=== PATIENT | female | born 1945 | race Caucasian/White ===

== ENCOUNTER 2019-09-24 17:41 | Emergency (ER) | payer MEDICARE ==
[2019-09-24] MEDS ORDERED: LIDOCAINE/PRILOCAINE 2.5% CREAM 5 GM TUBE TOP STA (18:40)
[2019-09-24] MEDS ORDERED: oxyCODONE 5 MG TABLET PO STA ×2 (18:41→19:49)
[2019-09-24] MEDS ORDERED: SULFAMETH/TRIMETH DS 800/160 MG TABLET PO STA (18:41)
[2019-09-24] MEDS ORDERED: AMOX/CLAV 875 MG/125 MG TABLET PO STA (18:41)
--- NOTE | 2019-09-24 18:43 | ED Physician Documentation ---
History of Present Illness - Stated complaint Stated Complaint: R HAND SWELLING - Chief complaint Chief Complaint: Wound - History obtained from History obtained from: Patient - History of Present Illness Timing: Today Pain level max: 0 Pain level now: 0 - Additonal information Additional information: 73-year-old female presents to the emergency department with right hand redness and swelling. She noticed this a few days ago, it has progressively gotten worse. Does not recall any injury. Tetanus is up-to-date. She is right- handed. Saw her doctor today who has referred her here for treatment. Worse with movement and better with rest. No fevers Review of Systems Constitutional: denies: Fever GI: denies: Vomiting, Diarrhea Skin: denies: Rash Musculoskeletal: denies: Neck pain, Back pain Neurologic: denies: Headache PD PAST MEDICAL HISTORY - Past Medical History Past Medical History: No - Present Medications Home Medications: Ambulatory Orders Medication Instructions Recorded Confirmed Amox/Clav 875/125 [Augmentin] 1 each PO Q12H #20 tablet 09/24/19 Sulfamethox/Trimeth 800/160 1 each PO BID #20 tablet 09/24/19 [Bactrim Ds 800/160] - Allergies Allergies/Adverse Reactions: Allergies Allergy/AdvReac Type Severity Reaction Status Date / Time No Known Drug Allergies Allergy Verified 09/24/19 17:49 - Living Situation Living Situation: reports: With family Living Arrangement: reports: At home - Social History Does the pt have substance abuse?: No - Family History Family history: reports: Non contributory PD ED PE NORMAL - Vitals Vital signs reviewed: Yes - General General: Alert and oriented X 3, No acute distress - HEENT HEENT: Moist mucous membranes - Neck Neck: Supple, no meningeal sign - Cardiac Cardiac: RRR - Respiratory Respiratory: No respiratory distress, Clear bilaterally - Derm Derm: Warm and dry - Extremities Extremities: Other (R hand - Erythema and swelling to the dorsum of the hand as well as to the thenar eminence. There is a small pustule visible. Full range of motion. No evidence of deep space infection in the hand. No lymphangitic spread. NVI) - Neuro Neuro: Alert and oriented X 3 - Psych Psych: Normal mood, Normal affect Results - Vitals Vitals: Vital Signs - 24 hr 09/24/19 20:29 Temperature 36.7 C Heart Rate 69 Respiratory 16 Rate Blood Pressure 135/92 H O2 Saturation 97 Oxygen O2 Source Room air - Labs Labs: Microbiology 09/24/19 20:50 Wound Culture - Preliminary Hand - Right Staphylococcus Aureus Procedures - Abscess I&D (location) Right hand Preparation: Topical spray, LET Incision: Incised with scalpel, Purulent drainage, Culture obtained Other: Pt tolerated well, Dressing applied, Antibiotic prescribed PD MEDICAL DECISION MAKING - ED course Complexity details: considered differential, d/w patient, d/w family ED course: 73-year-old female with an abscess and cellulitis to the right hand. This was incised and drained. Started on antibiotics. We will follow-up closely with her doctor and or here. Patient given strict return precautions. No evidence of deep space infection at this time. Patient counseled regarding signs and symptoms for which I believe and urgent re-evaluation would be necessary. Patient with good understanding of and agreement to plan and is comfortable going home at this time This document was made in part using voice recognition software. While efforts are made to proofread this document, sound alike and grammatical errors may occur. Departure - Departure Disposition: 01 Home, Self Care Clinical Impression: Abscess Cellulitis Qualifiers: Site of cellulitis: extremity Site of cellulitis of extremity: upper extremity Laterality: right Qualified Code(s): L03.113 - Cellulitis of right upper limb Condition: Good Instructions: ED Abscess IandD, ED Infec Skin Cellulitis Follow-Up: Beni Carter MD [Primary Care Provider] - Within 3 Days Prescriptions: Amox/Clav 875/125 [Augmentin] 1 each PO Q12H #20 tablet Sulfamethox/Trimeth 800/160 [Bactrim Ds 800/160] 1 each PO BID #20 tablet Comments: Take all antibiotics until gone. This should be improving by tomorrow. Return if you notice redness extending up the hand or the forearm. Return for fevers. Otherwise this needs to be rechecked in 2 to 3 days either here or with your doctor. Discharge Date/Time: 09/24/19 20:42
[2019-09-24 20:30] VITALS: BP 135/92
== END 2019-09-24 20:42 | disposition home or self-care (01) ==
LOC: ED 17:41
DX: L02.511 Cutaneous abscess of right hand (principal); L03.113 Cellulitis of right upper limb
CPT/HCPCS: 10060; 87070; 87181; 87205; 99283; 99284; A9270; J3490

== ENCOUNTER 2023-02-28 13:47 | Emergency (ER) | payer MEDICARE ==
[2023-02-28 13:58] VITALS: BP 147/86
--- NOTE | 2023-02-28 13:59 | ED Physician Documentation ---
PD HPI SKIN - Stated complaint Stated Complaint: RT BACK ABSESS - Chief complaint Chief Complaint: Wound - History obtained from History obtained from: Patient - History of Present Illness Timing - onset: How many days ago (several days of steadily increasing redness, swelling and painful/tender right suprascapular area. Has had some lump under skin for a year. Has not been tender nor red prior.) Timing - duration: Days Timing - details: Abrupt onset, Still present Location: Other (right suprascapular area.) Quality / character: Painful, Discolored, Swelling. No: Draining Associated symptoms: No: Fever, Myalgias, N/V/D Contributing factors: Other (has had subcut lump there for a year, nontender but "in the way" for bra-strap. Had been to PMD and was told to leave it unless bothers her.) Similar symptoms before: Has not had sx before Review of Systems Constitutional: denies: Fever, Chills Skin: reports: Lesions Neurologic: denies: Focal weakness, Numbness PD PAST MEDICAL HISTORY - Past Medical History Cardiovascular: None Respiratory: None Neuro: None Endocrine/Autoimmune: HyPOthyroidism GI: None EMPLOYMENT AND CLAIMS AIDE: None : None HEENT: None Psych: None Musculoskeletal: Osteoporosis Derm: Eczema - Past Surgical History Past Surgical History: Yes Ortho: Arthroscopic surgery - Present Medications Home Medications: Ambulatory Orders Medication Instructions Recorded Confirmed Doxycycline Hyclate 100 mg PO BID 7 Days #14 cap 02/28/23 - Allergies Allergies/Adverse Reactions: Allergies Allergy/AdvReac Type Severity Reaction Status Date / Time No Known Drug Allergies Allergy Verified 02/28/23 13:57 - Social History Does the pt smoke?: Yes Smoking Status: Current every day smoker Does the pt drink ETOH?: Yes Does the pt have substance abuse?: No - Immunizations Immunizations are current?: No - POLST Patient has POLST: No PD ED PE NORMAL - Vitals Vital signs reviewed: Yes - General General: Alert and oriented X 3, No acute distress (appears uncomfortable for sure with palpation of the red/swelling area. ), Well developed/nourished - Derm Derm: Normal color, Warm and dry, Other (right suprascapular area with rounded, raised, angry red, very tender lump with fluctuance, about 2-3 cm diameter and raised about 2 cm. ) - Neuro Neuro: Alert and oriented X 3, No motor deficit, No sensory deficit Results - Vitals Vitals: Vital Signs - 24 hr 02/28/23 13:54 Temperature 36.4 C L Heart Rate 77 Respiratory 16 Rate Blood Pressure 147/86 H O2 Saturation 99 Oxygen O2 Source Room air - Labs Labs: Microbiology 02/28/23 14:21 Wound Culture - Preliminary Shoulder - Right Procedures - Abscess I&D (location) right suprascapular area Preparation: Lidocaine 1%, With epi Incision: Incised with scalpel, Purulent drainage, Irrigated, Culture obtained Other: Pt tolerated well, Dressing applied, Antibiotic prescribed, Other (the patient had been offered IM/PO meds prior to incision. She declined. The incisi on did not hurt, but the area is very tender for palpating more purulence out and irrigating.) PD Medical Decision Making - ED course Complexity details: considered differential (presume has been sebaceous cyst for long time that is now infected. Less likely lipoma. It is fluid filled and warrants I&D. There is tissue redness/swelling surrounding and will need abx for that component as well. ), d/w patient Departure - Departure Disposition: 01 Home, Self Care Clinical Impression: Shoulder abscess Condition: Stable Record reviewed to determine appropriate education?: Yes Instructions: ED Abscess IandD Follow-Up: [facility] [Provider Group] Tammy Green ARNP [Provider Admit Priv/Credential] - Prescriptions: Doxycycline Hyclate 100 mg PO BID 7 Days #14 cap Comments: This looks like stated to have been a sebaceous cyst that got infected. It does have a small cavitary lesion there from the infection. This should fill in with subcutaneous tissue as the infection clears and heals. If there is residual scarring or lump that is bothersome, you could see a derma tologist regarding excision of that. They would want it to fully heal first however. We did do a culture of the material. We will call if we need to amend the antibiotics based on that. Most the time this is a Staph aureus type infection and I will prescribe doxycycline twice daily for a week for this. Warm compresses to the area to help promote drainage. Massage gently to continue getting drainage. Tylenol or ibuprofen as needed for pains. Recheck if not improving well over the next several days. I sent a prescription to your preferred pharmacy. Discharge Date/Time: 02/28/23 14:38
[2023-02-28] MEDS ORDERED: DOXYCYCLINE 100 MG TABLET PO STA (14:24)
== END 2023-02-28 14:38 | disposition home or self-care (01) ==
LOC: ED 13:47
DX: L02.413 Cutaneous abscess of right upper limb (principal); F17.200 Nicotine dependence, unspecified, uncomplicated
CPT/HCPCS: 10060; 87070; 87205; 99283; A9270